=== PATIENT | male | born 1970 | race African-American/Black ===

== ENCOUNTER 2016-11-03 16:05 | Observation (INO) | payer OTHER ==
[~2016-11-03] VITALS: Ht 180.3 cm; Wt 80.0 kg
[~2016-11-03 16:05] MED LIST: AUGMENTIN875 MG PO; HYDROCHLORO25 MG/TAB PO; HYZAAR; HYZAAR1 TA1 OR; HYZAAR1 TA1 PO; HYZAAR1 TA2; HYZAAR1 TA2 PO; LISINOPRIL10 MG OR; LISINOPRIL10 MG PO; LORTAB 5 OR; LOSARTAN POT50 MG OR; NAPROSYN500 MG OR; NAPROSYN500 MG PO; NITROGLYCER0.4 MG SL; NITROLINGUAL SPRAY D SL; PHENERGAN25 MG/ML IM; PREVACID; PREVACID30 M1 PO; SIMVASTATIN40 MG OR; SIMVASTATIN40 MG PO; SIMVASTATIN5 MG PO; TORADOL IM; ULTRAM50 M1 PO; ULTRAM50 MG OR; ZITHROMAX500 MG OR; ZOCOR20 MG PO
[2016-11-03] MEDS ORDERED: GLIPIZIDE ER5 MG PO (16:16)
--- NOTE | 2016-11-03 16:16 | NUR ---
WHEELCHAIR TO ER ROOM 14, TO BED , EKG UPON ARRIVAL
--- NOTE | 2016-11-03 16:29 | NUR ---
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 DENIES SOB, N/V/D, COUGH. IV ESTABLISHED. LABS DRAWN. EKG COMPLETED. EXPLAINED POC AT BEDSIDE.
[2016-11-03 16:45] LABS: HEMATOCRIT 51.9 % (39.0-50.0); HEMOGLOBIN 17.1 g/dl (14.0-18.0); MEAN CELL VOLUME 81.2 fL CALC (80.0-100.0); MEAN CORPUSCULAR HGB 26.8 pG CALC (26.0-32.0); MEAN CORPUSCULAR HGB CONC 32.9 g/L CALC (32.0-36.0); NEUT# 6.55 thou/uL (1.82-7.42); RED BLOOD COUNT 6.39 mill/uL (4.70-6.10); RED CELL DISTRI WIDTH 13.2 % (11.5-15.5)
[2016-11-03 17:02] LABS: ALBUMIN 4.6 g/dL (3.2-5.0); ALKALINE PHOSPHATASE 78 u/l (38-126); ANION GAP 18 (6-22 (CALC)); BILIRUBIN, TOTAL 0.7 mg/dL (0.0-1.4); BUN 22 mg/dL (9-20); BUN/CREATININE RATIO 19 (12-20 (CALC)); CALCIUM 10.3 mg/dL (8.4-10.2); CARBON DIOXIDE 24 mmol/l (22-30); CHLORIDE 103 mmol/l (95-108); CREATININE 1.1 mg/dL (0.7-1.3); GFR > 60 ML/MIN (>=60 (CALC)); GFR FOR AFR.AMER. > 60 ML/MIN (>=60 (CALC)); GLUCOSE 121 mg/dL (75-110); POTASSIUM 3.8 mmol/l (3.5-5.1); SGOT/AST 26 u/l (17-59); SGPT/ALT 48 u/l (21-72); SODIUM 141 mmol/l (137-146); TOTAL PROTEIN 7.4 g/dL (6.3-8.2)
[2016-11-03 17:13] LABS: MYOGLOBIN 93 ng/mL (0 - 121)
--- NOTE | 2016-11-03 17:35 | NUR ---
PT DENIES CP AT THIS TIME. PT JOKING WITH STAFF. PT IS NSR, BP & O2 WNL.
--- NOTE | 2016-11-03 18:02 | NUR ---
ASKED FOR TRAY FOR PT. CALLED [facility], THEY WILL SEND DOWN A CARDIAC TRAY.
--- NOTE | 2016-11-03 18:14 | NUR ---
1" NITRO PASTE PLACED ON PTS LEFT THIGH
--- NOTE | 2016-11-03 19:04 | NUR ---
ADMITTING RN [place]. PT ATE DINNER FROM [facility]. DENIES PAIN AT THIS TIME. CARDIAC & RESP WNL. NO S/S OF DISTRESS AT THIS TIME.
--- NOTE | 2016-11-03 19:54 | NUR ---
Admission Note Report Given to: SERGE Transported by: Wheelchair X Stretcher Transported with: X Nurse Transporter X Patent IV O2 X [place] Decorator TRANSPORTED TO ICU 4
--- NOTE | 2016-11-03 20:00 | NUR ---
PT RECEIVED FROM E.R VIA WHEELCHAIR ACCOMPANIED BY NURSE AND PTS . GAIT IS STEADY. RESP EVEN AND UNLABORED. PT IS ALERT AND ORIENTED X4. LUNGS CLEAR BILAT. ABD SOFT AND NONDISTENDED WITH BOWEL SOUNDS PRESENT. NO LOWER EXT EDEMA NOTED. PEDAL PULSES PALPATED BILAT. SKIN IS INTACT. HEPLOCK PATENT IN LEFT A.C NO REDNESS OR TENDERNESS AT SITE. MONITOR READING SR HR 80-90'S. URINAL AT BEDSIDE. PT ORIENTED TO ROOM AND CALL JOHNSON. FREQUENT ROUNDS MADE. CALL JOHNSON WITHIN REACH.
--- NOTE | 2016-11-03 22:15 | NUR ---
PT AWAKE RESTING IN BED WATCHING T.V. VSS. RESP EVEN AND UNLABORED. MONITOR SR. STAYING THE NIGHT WITH PT. RECLINER, BLANKET AND PILLOW PROVIDED WITH FRESH WATER. PT OFFERS NO COMPLAINTS. FREQUENT ROUNDS MADE. CALL JOHNSON WITHIN REACH.
--- NOTE | 2016-11-04 00:20 | NUR ---
PT RESTING BED WITH EYES CLOSED. RESP EVEN AND UNLABORED. RESTING IN RECLINER AT BEDSIDE. FREQUENT ROUNDS MADE. TROPONINS NEGATIVE. CALL JOHNS[facility] WITHIN REACH.
[2016-11-04 03:52] VITALS: BP 82/52
--- NOTE | 2016-11-04 04:05 | NUR ---
PT WOKE. B/P 82/52, HR 80'S. PT ASYMPTOMATIC WITH LOW B/P. NTG PASTE REMOVED. PT OFFERS NO COMPLAINTS. FREQUENT ROUNDS MADE. WILL CONTINUE TO CLOSELY MONITOR. CALL JOH[facility] WITHIN REACH.
[2016-11-04 05:49] VITALS: BP 102/72
--- NOTE | 2016-11-04 06:21 | NUR ---
PT RESTING IN BED WITH EYES CLOSED. VSS. B/P 102/72. MONITOR READING SR. ERIC PATENT. THIRD TROPNIN IS <0.012. PT HAS OFFERED NO COMPLAINTS. FREQUENT ROUNDS MADE. CALL JOHNSON WITHIN REACH.
[2016-11-04 08:00] VITALS: BP 131/99
[2016-11-04] MEDS ORDERED: ZESTRIL5 M1 PO ×2 (08:13→08:45)
--- NOTE | 2016-11-04 08:15 | NUR ---
PATIENT IN BED TALKING WITH VISITOR. ASSESSMENT COMPLETED AT THIS TIME. RESP EVEN AND UNLABORED. PATIENT DENIES ANY NEEDS OR PAIN. STATES HE IS "READY TO GET HOME" CALL LIGHT IN REACH. BREAKFAST TRAY TAKEN OUT OF ROOM.
--- NOTE | 2016-11-04 08:48 | NUR ---
PATIENT TRANSFERED TO OR IN BED BY OR STAFF.
--- NOTE | 2016-11-04 08:49 | NUR ---
Discharge instructions given. Patient verbalizes understanding of same. Discharged in stable condition via Ambulatory to Home with family. All belongings sent with pt.
== END 2016-11-04 08:40 | disposition home or self-care (01) | DRG 313 ==
LOC: ED 16:05 → ED-I 17:41 → ED 18:03 → ICU 18:04
PROVIDERS: Emergency Medicine; ADMIT Internal Medicine; ATTEND Internal Medicine
DX: R07.89 Other chest pain (principal); I10 Essential (primary) hypertension; E78.5 Hyperlipidemia, unspecified; E11.9 Type 2 diabetes mellitus without complications; F17.210 Nicotine dependence, cigarettes, uncomplicated; Z82.49 Family history of ischemic heart disease and other diseases of the circulatory system; Z79.84 Long term (current) use of oral hypoglycemic drugs

== ENCOUNTER 2016-12-17 21:10 | Emergency (ER) | payer OTHER ==
[~2016-12-17] VITALS: Ht 180.3 cm; Wt 97.6 kg
[~2016-12-17 21:10] MED LIST changes: +GLIPIZIDE ER5 MG PO; +ZESTRIL5 M1 PO
[2016-12-17] MEDS ORDERED: HYZAAR1 TA2 PO (21:19)
[2016-12-17] MEDS ORDERED: (None)3.5 GM OS (21:33)
[2016-12-17 21:38] VITALS: BP 140/96
== END 2016-12-17 21:39 | disposition home or self-care (01) | DRG 125 ==
LOC: ED 21:10
DX: H10.9 Unspecified conjunctivitis (principal); I10 Essential (primary) hypertension; E11.9 Type 2 diabetes mellitus without complications; I25.10 Atherosclerotic heart disease of native coronary artery without angina pectoris; I25.2 Old myocardial infarction; F17.210 Nicotine dependence, cigarettes, uncomplicated

== ENCOUNTER 2017-04-06 21:37 | Emergency (ER) | payer OTHER ==
[~2017-04-06] VITALS: Ht 180.3 cm; Wt 96.8 kg
[~2017-04-06 21:37] MED LIST changes: +(None)3.5 GM OS
[2017-04-06 22:50] LABS: URINE BILIRUBIN - DIPSTICK NEGATIVE (NEGATIVE); URINE BLOOD DIPSTICK NEGATIVE (NEGATIVE); URINE COLOR YELLOW; URINE GLUCOSE - DIPSTICK >=1000 mg/dL (NEGATIVE); URINE KETONE NEGATIVE (NEGATIVE); URINE LEUK ESTERASE NEGATIVE (NEGATIVE); URINE NITRITE - DIPSTICK NEGATIVE (Negative); URINE PH 5.5 (4.5-8.0); URINE PROTEIN - DIPSTICK NEGATIVE (NEG-TRACE); URINE SPECIFIC GRAVITY <=1.005; URINE UROBILINOGEN - DIPSTICK 0.2 E.U./dL (0.2)
[2017-04-06 22:52] LABS: URINE CLARITY SL CLOUDY
[2017-04-06] MEDS ORDERED: BACTRIM DS1 TAB PO (22:56)
[2017-04-06 23:20] VITALS: BP 136/93
== END 2017-04-06 23:20 | disposition home or self-care (01) | DRG 690 ==
LOC: ED 21:37
PROVIDERS: Emergency Medicine
DX: N34.2 Other urethritis (principal); I50.9 Heart failure, unspecified; E11.9 Type 2 diabetes mellitus without complications; F17.210 Nicotine dependence, cigarettes, uncomplicated

== ENCOUNTER 2017-09-05 22:06 | Observation (INO) | payer OTHER ==
[~2017-09-05] VITALS: Ht 180.3 cm; Wt 90.3 kg
[~2017-09-05 22:06] MED LIST changes: +BACTRIM DS1 TAB PO
[2017-09-05] MEDS ORDERED: METFORMIN1000 MG PO (22:49)
[2017-09-05] MEDS ORDERED: TRESIBA FL100 UNIT/M SC (22:49)
[2017-09-05] MEDS ORDERED: ASPIRIN LOW81 M1 PO (22:50)
[2017-09-05 22:52] LABS: URINE BILIRUBIN - DIPSTICK NEGATIVE (NEGATIVE); URINE BLOOD DIPSTICK TRACE-INTACT (NEGATIVE); URINE COLOR YELLOW; URINE GLUCOSE - DIPSTICK 100 mg/dL (NEGATIVE); URINE KETONE NEGATIVE (NEGATIVE); URINE LEUK ESTERASE NEGATIVE (NEGATIVE); URINE NITRITE - DIPSTICK NEGATIVE (Negative); URINE PROTEIN - DIPSTICK NEGATIVE (NEG-TRACE); URINE SPECIFIC GRAVITY 1.025; URINE UROBILINOGEN - DIPSTICK 0.2 E.U./dL (0.2)
[2017-09-05 22:55] LABS: HEMATOCRIT 49.6 % (39.0-50.0); HEMOGLOBIN 15.9 g/dl (14.0-18.0); IMMATURE GRANULOCYTES 0.5 % (0.0-5.0); MEAN CELL VOLUME 80.9 fL CALC (80.0-100.0); MEAN CORPUSCULAR HGB 25.9 pG CALC (26.0-32.0); MEAN CORPUSCULAR HGB CONC 32.1 g/L CALC (32.0-36.0); NEUT# 4.87 thou/uL (1.82-7.42); RED BLOOD COUNT 6.13 mill/uL (4.70-6.10); RED CELL DISTRI WIDTH 12.9 % (11.5-15.5)
[2017-09-05 22:59] LABS: URINE CLARITY CLEAR
[2017-09-05 23:14] LABS: ACT PARTIAL THROMBO TIME 27.3 SECONDS (20.0-32.5); INTERNATIONAL NORMALIZED RATIO 0.9 RATIO (0.7-1.3); PROTHROMBIN TIME 10.1 SECONDS (9.0-12.5)
[2017-09-05 23:16] LABS: ALBUMIN 4.3 g/dL (3.2-5.0); ANION GAP 16 (6-22 (CALC)); BILIRUBIN, TOTAL 0.4 mg/dL (0.0-1.4); BUN 13 mg/dL (9-20); BUN/CREATININE RATIO 14 (12-20 (CALC)); CARBON DIOXIDE 26 mmol/l (22-30); CHLORIDE 101 mmol/l (95-108); CREATININE 0.9 mg/dL (0.7-1.3); GFR > 60 ML/MIN (>=60 (CALC)); GFR FOR AFR.AMER. > 60 ML/MIN (>=60 (CALC)); POTASSIUM 3.7 mmol/l (3.5-5.1); SGOT/AST 22 u/l (17-59); SGPT/ALT 35 u/l (21-72); SODIUM 138 mmol/l (137-146); TOTAL PROTEIN 6.8 g/dL (6.3-8.2)
[2017-09-05 23:18] LABS: ALKALINE PHOSPHATASE 129 u/l (38-126)
[2017-09-05 23:27] LABS: MYOGLOBIN 50 ng/mL (0 - 121)
[2017-09-06 01:26] VITALS: BP 113/72
[2017-09-06 04:00] VITALS: BP 141/75
[2017-09-06 08:14] VITALS: BP 107/75
[2017-09-06 11:31] VITALS: BP 111/72
[2017-09-06 13:06] LABS: CHOLESTEROL HDL RATIO 4.9 (<4.4 (CALC))
[2017-09-06 16:21] VITALS: BP 132/89
[2017-09-06 19:00] VITALS: BP 138/91
[2017-09-07 00:05] VITALS: BP 130/77
[2017-09-07 04:00] VITALS: BP 126/95
[2017-09-07 07:29] VITALS: BP 139/91
[2017-09-07 11:24] VITALS: BP 138/92
[2017-09-07] MEDS ORDERED: NAPROXEN DR500 MG PO (12:58)
[2017-09-07] MEDS ORDERED: AMITRIPTYLIN25 MG PO (13:00)
[2017-09-07] MEDS ORDERED: BACTRIM DS1 TAB PO (13:00)
[2017-09-07] MEDS ORDERED: NEURONTIN100 MG PO (15:31)
== END 2017-09-07 17:11 | disposition home or self-care (01) | DRG 313 ==
LOC: ED 22:06 → ED-I 23:35 → ED 23:54 → ED-I 23:54 → MS2 23:55 → ED 23:55 → MS2 09-06 00:53
PROVIDERS: Emergency Medicine; Nurse Practitioner Family; ADMIT Internal Medicine; ATTEND Internal Medicine
DX: R07.89 Other chest pain (principal); R53.1 Weakness; R20.0 Anesthesia of skin; I11.9 Hypertensive heart disease without heart failure; E11.65 Type 2 diabetes mellitus with hyperglycemia; E78.5 Hyperlipidemia, unspecified; F17.210 Nicotine dependence, cigarettes, uncomplicated; G47.33 Obstructive sleep apnea (adult) (pediatric); E66.9 Obesity, unspecified; Z68.27 Body mass index [BMI] 27.0-27.9, adult; Z79.84 Long term (current) use of oral hypoglycemic drugs; Z82.49 Family history of ischemic heart disease and other diseases of the circulatory system
CPT/HCPCS: A9579; G0378

== ENCOUNTER 2019-04-04 | Emergency (ER) | payer OTHER ==
[~2019-04-04] MED LIST changes: +AMITRIPTYLIN25 MG PO; +ASPIRIN LOW81 M1 PO; +METFORMIN1000 MG PO; +NAPROXEN DR500 MG PO; +NEURONTIN100 MG PO; +TRESIBA FL100 UNIT/M SC
[2019-04-04] MEDS ORDERED: LANTUS100 UNIT/M SC (15:50)
[2019-04-04] MEDS ORDERED: LOSARTAN POTASS25 MG PO (15:50)
[2019-04-04] MEDS ORDERED: HUMALOG100 UNIT/M SC (15:52)
[2019-04-04] MEDS ORDERED: LOPID600 MG PO (15:52)
[2019-04-04] MEDS ORDERED: KEFLEX500 MG PO (16:48)
== END 2019-04-04 16:59 | disposition home or self-care (01) | DRG 603 ==
PROC: 0H9FXZZ Drainage of Right Hand Skin, External Approach (ICD-10-PCS; principal; 2019-04-04)
DX: L03.011 Cellulitis of right finger (principal); I11.0 Hypertensive heart disease with heart failure; I50.9 Heart failure, unspecified; E11.9 Type 2 diabetes mellitus without complications; I25.10 Atherosclerotic heart disease of native coronary artery without angina pectoris; I25.2 Old myocardial infarction; Z79.4 Long term (current) use of insulin; B95.1 Streptococcus, group B, as the cause of diseases classified elsewhere

== ENCOUNTER 2019-06-07 | Emergency (ER) | payer OTHER ==
[~2019-06-07] MED LIST changes: +HUMALOG100 UNIT/M SC; +KEFLEX500 MG PO; +LANTUS100 UNIT/M SC; +LOPID600 MG PO; +LOSARTAN POTASS25 MG PO
[2019-06-07] MEDS ORDERED: MOTRIN400 MG PO (12:01)
[2019-06-07] MEDS ORDERED: CYCLOBENZAPR5 MG PO (12:01)
[2019-06-07] MEDS ORDERED: DULOXETINE HYDR30 MG PO (12:07)
[2019-06-07] MEDS ORDERED: LOSARTAN POTASS50 MG PO (12:07)
[2019-06-07] MEDS ORDERED: ATORVASTATIN CA80 MG PO (12:08)
[2019-06-07] MEDS ORDERED: HYZAAR1 TA2 PO (12:09)
[2019-06-07] MEDS ORDERED: HUMALOG KW100 UNIT/M SC (12:09)
[2019-06-07] MEDS ORDERED: LANTUS SOL100 UNIT/M SC (12:09)
[2019-06-07] MEDS ORDERED: ADLT ASA LOW81 MG PO (12:10)
== END 2019-06-07 12:15 | disposition home or self-care (01) | DRG 563 ==
DX: S29.012A Strain of muscle and tendon of back wall of thorax, initial encounter (principal); M54.5 Low back pain; I11.0 Hypertensive heart disease with heart failure; I50.9 Heart failure, unspecified; E11.9 Type 2 diabetes mellitus without complications; I25.10 Atherosclerotic heart disease of native coronary artery without angina pectoris; I25.2 Old myocardial infarction; X58.XXXA Exposure to other specified factors, initial encounter; Z79.4 Long term (current) use of insulin

== ENCOUNTER 2020-08-13 16:52 | Emergency (ER) | payer OTHER ==
[~2020-08-13] VITALS: Ht 180.3 cm; Wt 92.0 kg
[~2020-08-13 16:52] MED LIST changes: +ADLT ASA LOW81 MG PO; +ATORVASTATIN CA80 MG PO; +CYCLOBENZAPR5 MG PO; +DULOXETINE HYDR30 MG PO; +HUMALOG KW100 UNIT/M SC; +LANTUS SOL100 UNIT/M SC; +LOSARTAN POTASS50 MG PO; +MOTRIN400 MG PO
[2020-08-13 17:54] LABS: HEMATOCRIT 51.1 % (39.0-50.0); HEMOGLOBIN 16.5 g/dl (14.0-18.0); IMMATURE GRANULOCYTES 0.4 % (0.0-5.0); MEAN CELL VOLUME 79.3 fL CALC (80.0-100.0); MEAN CORPUSCULAR HGB 25.6 pG CALC (26.0-32.0); MEAN CORPUSCULAR HGB CONC 32.3 g/dL CAL (32.0-36.0); NEUT# 6.09 thou/uL (1.82-7.42); RED BLOOD COUNT 6.44 mill/uL (4.70-6.10); RED CELL DISTRI WIDTH 12.3 % (11.5-15.5)
[2020-08-13 18:10] LABS: PROTHROMBIN TIME 10.4 SECONDS (9.0-12.5)
[2020-08-13 18:11] LABS: ALBUMIN 4.3 g/dL (3.2-5.0); ALKALINE PHOSPHATASE 105 u/l (38-126); BUN 16 mg/dL (9-20); BUN/CREATININE RATIO 16 (12-20 (CALC)); CHLORIDE 97 mmol/l (95-108); GFR > 60 ML/MIN (>=60 (CALC)); GFR FOR AFR.AMER. > 60 ML/MIN (>=60 (CALC)); POTASSIUM 3.4 mmol/l (3.5-5.1); SGOT/AST 33 u/l (17-59); SODIUM 138 mmol/l (137-146); TOTAL PROTEIN 7.4 g/dL (6.3-8.2)
[2020-08-13 18:19] LABS: ANION GAP 11 (6-22 (CALC)); BILIRUBIN, TOTAL 0.8 mg/dL (0.0-1.4); CARBON DIOXIDE 33 mmol/l (22-30)
[2020-08-13 18:23] LABS: MYOGLOBIN 46 ng/mL (0 - 121)
[2020-08-13 18:57] LABS: URINE BILIRUBIN - DIPSTICK NEGATIVE (NEGATIVE); URINE BLOOD DIPSTICK NEGATIVE (NEGATIVE); URINE COLOR YELLOW; URINE GLUCOSE - DIPSTICK NEGATIVE (NEGATIVE); URINE KETONE NEGATIVE (NEGATIVE); URINE LEUK ESTERASE NEGATIVE (NEGATIVE); URINE NITRITE - DIPSTICK NEGATIVE (Negative); URINE PROTEIN - DIPSTICK NEGATIVE (NEG-TRACE); URINE SPECIFIC GRAVITY 1.025; URINE UROBILINOGEN - DIPSTICK 0.2 E.U./dL (0.2)
[2020-08-13 20:03] VITALS: BP 129/92
== END 2020-08-13 19:59 | disposition left against medical advice (07) | DRG 313 ==
LOC: ED 16:52
PROVIDERS: Emergency Medicine
DX: R07.9 Chest pain, unspecified (principal); E11.9 Type 2 diabetes mellitus without complications; I11.0 Hypertensive heart disease with heart failure; I50.9 Heart failure, unspecified; I25.2 Old myocardial infarction; I25.10 Atherosclerotic heart disease of native coronary artery without angina pectoris; E78.00 Pure hypercholesterolemia, unspecified; G47.30 Sleep apnea, unspecified; Z79.4 Long term (current) use of insulin; Z91.19 Patient's noncompliance with other medical treatment and regimen

== ENCOUNTER 2021-02-04 10:49 | Emergency (ER) | payer OTHER ==
[~2021-02-04] VITALS: Ht 180.3 cm; Wt 93.1 kg
[2021-02-04] MEDS ORDERED: TRULICITY1.5 MG/0.5 IM (11:03)
[2021-02-04] MEDS ORDERED: NAPROXEN500 MG PO (12:32)
[2021-02-04 12:40] VITALS: BP 153/95
== END 2021-02-04 12:45 | disposition home or self-care (01) | DRG 552 ==
LOC: ED 10:49
DX: S13.9XXA Sprain of joints and ligaments of unspecified parts of neck, initial encounter (principal); I11.0 Hypertensive heart disease with heart failure; I50.9 Heart failure, unspecified; E11.9 Type 2 diabetes mellitus without complications; I25.10 Atherosclerotic heart disease of native coronary artery without angina pectoris; I25.2 Old myocardial infarction; E78.00 Pure hypercholesterolemia, unspecified; Z79.4 Long term (current) use of insulin; V53.5XXA Driver of pick-up truck or van injured in collision with car, pick-up truck or van in traffic accident, initial encounter

== ENCOUNTER 2022-01-21 12:26 | Emergency (ER) | payer OTHER ==
[~2022-01-21] VITALS: Ht 180.3 cm; Wt 91.0 kg
[~2022-01-21 12:26] MED LIST changes: +NAPROXEN500 MG PO; +TRULICITY1.5 MG/0.5 IM
[2022-01-21 12:58] LABS: HEMATOCRIT 53.7 % (39.0-50.0); HEMOGLOBIN 17.4 g/dl (14.0-18.0); IMMATURE GRANULOCYTES 0.4 % (0.0-5.0); MEAN CELL VOLUME 80.3 fL CALC (80.0-100.0); MEAN CORPUSCULAR HGB CONC 32.4 g/dL CAL (32.0-36.0); NEUT# 2.07 thou/uL (1.82-7.42); RED BLOOD COUNT 6.69 mill/uL (4.70-6.10); RED CELL DISTRI WIDTH 12.5 % (11.5-15.5)
[2022-01-21 13:34] LABS: ALBUMIN 4.3 g/dL (3.2-5.0); ALKALINE PHOSPHATASE 128 u/l (38-126); ANION GAP 14 (6-22 (CALC)); BILIRUBIN, TOTAL 0.5 mg/dL (0.0-1.4); BUN 15 mg/dL (9-20); BUN/CREATININE RATIO 14 (12-20 (CALC)); CARBON DIOXIDE 27 mmol/l (22-30); CHLORIDE 102 mmol/l (95-108); CREATININE 1.1 mg/dL (0.7-1.3); GFR FOR AFR.AMER. > 60 ML/MIN (>=60 (CALC)); GFR OTHER RACES > 60 ML/MIN (>=60 (CALC)); POTASSIUM 3.8 mmol/l (3.5-5.1); SGOT/AST 27 u/l (17-59); SODIUM 140 mmol/l (137-146); TOTAL PROTEIN 7.1 g/dL (6.3-8.2)
[2022-01-21] MEDS ORDERED: PAXLOVID PO (13:58)
[2022-01-21] MEDS ORDERED: ZOFRAN4 MG/TAB PO (13:58)
[2022-01-21 14:31] VITALS: BP 143/105
== END 2022-01-21 14:45 | disposition home or self-care (01) | DRG 179 ==
LOC: ED 12:26
PROVIDERS: Family Medicine
DX: U07.1 COVID-19 (principal); E11.9 Type 2 diabetes mellitus without complications; I10 Essential (primary) hypertension; I50.9 Heart failure, unspecified; I25.10 Atherosclerotic heart disease of native coronary artery without angina pectoris; I25.2 Old myocardial infarction; G47.30 Sleep apnea, unspecified